=== PATIENT | female | born 1930 | race Caucasian/White ===

== ENCOUNTER 2018-06-21 10:23 | Emergency (ER) | payer OTHER, MEDICARE ==
--- OUTSIDE RECORDS SUMMARY | 2018-06-21 10:27 | XMS REPORT | Continuity of Care Document ---
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 [facility] RT KNEE OA Active [facility] HAMSTRING [place] PAIN IN RIGHT Active [facility] KNEE [place] NONTRAUMATIC Active [facility] SUBARACHNOID Medical HEMORRHAGE, [facility] Medications Medication Details Route Status Patient Ordering Order Source Instructions Provider Date Acetaminophen 650 mg=20.3 mL, Active 07/07[facility] PO, Q6H, PRN Pain 2017 Medical 1-3/Temp > 99.5 [place] F, 0 Refill(s) Sulfamethoxazole 1 tab, PO, Q12H, Active 07/07[facility] [place] 800 MG / Take 1 tab twice 2017 Medical Trimethoprim 160 a day, last dose Center MG Oral Tablet will be PM dose [Bactrim] on 07/13/16, this will complete a 7 day course., # 13 tab, 0 Refill(s) Levetiracetam 500 500 mg=1 tab, PO, Active 07/07[facility] [place] MG Oral Tablet Q12H, Take 1 tab 2017 Medical twice a day, last Center dose will be PM dose on 07/10/16, this will complete a 7 day course., # 7 tab, 0 Refill(s) docusate sodium 100 mg=10 mL, PO, Active 07/07[facility] [place] 150 mg/15 mL oral Q12H, 0 Refill(s) 2017 [facility] Sulfamethoxazole 1 tab, Route: PO, Inactive 07/07[facility] [place] 800 MG / Drug Form: TAB, 2017 Medical Trimethoprim 160 Dosing Weight Center MG Oral Tablet 84.8, kg, [Bactrim] [id number], NOW, Start date: 07/07/16 10:23:00 CDT, Duration: 14 doses or times, Stop date: 07/13/16 23:00:00 CDTNotes: One DS tablet=trimethopr im 160mg + sulfamethoxazole 800 mg Dose based on trimethoprim component On empty stomach with a glass of water. 1 hr before meals (Same As: Bactrim DS, Septra DS) ascorbic acid 1,000 mg, 2 tab, Inactive [facility] Route: PO, Drug 2016 Medical form: TAB, Daily, Center Dosing Weight 84.8, kg, Start date: 07/07/16 9:00:00 CDT, Duration: 30 day, Stop date: 08/05/16 9:00:00 CDTNotes: (Same as: Vitamin C) Solifenacin 5 mg, Route: PO, No Longer [facility] Drug form: TAB, Active 2017 Medical Daily, Dosing Center Weight 84.8, kg, Start date: 07/07/16 9:00:00 CDT, Duration: 30 day, Stop date: 08/05/16 9:00:00 CDT Magnesium Oxide 800 mg, 2 tab, Inactive [facility] Route: PO, Drug 2016 Medical form: TAB, TID, Center Dosing Weight 84.8, kg, Start date: 07/07/16 9:00:00 CDT, Duration: 2 doses or times, Stop date: 07/07/16 13:00:00 CDTNotes: (Same as: Mag-Ox 400) Magnesium oxide [id number] elemental magnesium Dose=____mg magnesium oxide (___mg elemental magnesium) Calcium Carbonate 500 mg, 1 tab, Inactive 07/07[facility] Route: PO, Drug 2016 Medical form: CHEWTAB, Center Daily, Dosing Weight 84.8, kg, Start date: 07/07/16 9:00:00 CDT, Duration: 30 day, Stop date: 08/05/16 9:00:00 CDTNotes: (Same As: Tums) Calcium Carbonate 500 zt=053 mg elemental calcium Dose= mg calcium carbonate ( mg elemental calcium) Ceftriaxone 1 gm, Route: Inactive [facility] IVPB, Drug form: 2017 Medical PDR/INJ, [id number], Center Dosing Weight 84.8, kg, Start date: 07/07/16 8:00:00 CDT, Duration: 5 doses or times, Stop date: 07/11/16 8:00:00 CDTNotes: (Same As: Rocephin). Use with 100 mL NS and infuse over 30 min MEDICATION WASTE Product Size: 1000 mg Product Wasted: ___ mg Simvastatin 40 mg, Route: PO, Inactive [facility] Drug form: TAB, 2017 Medical Bedtime, Dosing Center Weight 84.8, kg, Start date: 07/06/16 21:00:00 CDT, Duration: 30 day, Stop date: 08/04/16 21:00:00 CDT Aricept 10 mg, 2 tab, No Longer [facility] Route: PO, Drug Active 2016 Medical form: TAB, Center Bedtime, Dosing Weight 84.8, kg, Start date: 07/06/16 21:00:00 CDT, Duration: 30 day, Stop date: 08/04/16 21:00:00 CDTNotes: (Same as: Aricept) oxybutynin 2.5 mg, 0.5 tab, No Longer [facility] Route: PO, Drug Active 2016 Medical form: TAB, BID, Center Start date: 07/06/16 17:00:00 CDT, Duration: 30 day, Stop date: 08/05/16 9:00:00 CDTNotes: Same as: Ditropan) 2.5 mg=1/2 x 5 mg TAB Namenda 10 mg, 1 tab, No Longer [facility] Route: PO, Drug Active 2016 Medical form: TAB, Daily, Center Dosing Weight 84.8, kg, Start date: 07/06/16 15:00:00 CDT, Duration: 30 day, Stop date: 08/05/16 9:00:00 CDTNotes: (Same As: Namenda) multivitamin with 15 mL, Route: PO, No Longer [facility] minerals Drug Form: LIQ, Active 2017 Medical Dosing Weight Center 84.8, kg, Daily, Start date: 07/06/16 15:00:00 CDT, Duration: 30 day, Stop date: 08/05/16 9:00:00 CDTNotes: Adult dose=15ML Take with food. (Same As: Centrum, Certagen) WASTE: F/P - Black; E - Municipal Trash Bin Lexapro 10 mg, 1 tab, No Longer [place] Route: PO, Drug Active 2016 Medical form: TAB, Daily, Center Dosing Weight 84.8, kg, Start date: 07/06/16 13:23:00 CDT, Duration: 30 day, Stop date: 08/05/16 9:00:00 CDTNotes: (Same as: Lexapro) Acetaminophen 650 mg, 20.3 mL, No Longer [place] Route: PO, Drug Active 2016 Medical form: LIQ, Q6H, Center Dosing Weight 84.8, kg, PRN Pain 1-3/Temp > 99.5 F, Start date: 07/06/16 13:03:00 CDT, Duration: 30 day, Stop date: 08/05/16 13:02:00 CDTNotes: Max jkegckmsffose=342 0mg/day (4 gm/day). (Same as: Tylenol) Vitamin K1 10 mg, 10 mL, No Longer [place] Route: PO, Drug Active 2016 Medical form: SUSP, Center Daily, Dosing Weight 84.8, kg, Start date: 07/05/16 14:46:00 CDT, Duration: 2 day, Stop date: 07/07/16 9:00:00 CDT, Pediatric DosingNotes: Same as: Vitamin K, [place] Combine FILTERED phytonadione injection (total 50 mg/5 mL)with Simple Syrup (45mL) in brandin bottle. Shake well prior to dispensing. Expiration: 90 days at tem Vitamin K1 10 mg, 10 mL, Inactive [place] Route: PO, Drug 2016 Medical form: SUSP, Center Daily, Dosing Weight 84.8, kg, Start date: 07/05/16 9:00:00 CDT, Stop date: 07/06/16 9:00:00 CDT, Pediatric DosingNotes: Same as: Vitamin K, [place] Combine FILTERED phytonadione injection (total 50 mg/5 mL)with Simple Syrup (45mL) in brandin bottle. Shake well prior to dispensing. Expiration: 90 days at tem Miralax 17 gm, 1 pkt, Inactive [place] Route: PO, Drug 2016 Medical form: PWDR, ONCE, Center Dosing Weight 84.8, kg, Priority: NOW, Start date: 07/05/16 5:51:00 CDT, Stop date: 07/05/16 5:51:00 CDTNotes: Dissolve in 8 oz of water or juice. (Same as: Miralax) heparin sodium, 5,000 unit, 1 mL, No Longer [facility] porcine 2500 Route: SUB-Q, Active 2016 Medical UNT/ML Injectable Drug form: INJ, Center Solution Q8H, Dosing Weight 84.8, kg, Priority: Routine, Start date: 07/05/16 0:00:00 CDT, Duration: 30 day, Stop date: 08/03/16 16:00:00 CDTNotes: porcine heparin Warfarin 6.5 mg, PO, No Longer [facility] Daily, 0 Active 2016 Medical Refill(s) [place] vitamin E 400 400 IntlUnit=1 Active [facility] intl units oral cap, PO, Daily, # 2017 Medical capsule 30 cap, 0 Center Refill(s) Escitalopram 10 10 mg=1 tab, PO, Active [facility] MG Oral Tablet Daily, # 30 tab, 2017 Medical [Lexapro] 0 Refill(s) [place] Tylenol PO, 0 Refill(s) No Longer [facility] Active 2017 [facility] Center Foltx oral tablet 1 tab, PO, Daily, Active [facility] 0 Refill(s) 2017 [facility] Center Donepezil 10 mg=1 tab, PO, Active [facility] hydrochloride 10 BID, 0 Refill(s) 2017 Medical MG Oral Tablet Center [Aricept] simvastatin 40 mg 40 mg=1 tab, PO, Active [facility] oral tablet Bedtime, # 90 2017 Medical tab, 0 Refill(s) [place] celecoxib 100 MG 100 mg=1 cap, PO, Active [facility] Oral Capsule BID, # 60 cap, 0 2017 Medical [Celebrex] Refill(s) Center Vitamin C 1,000 mg, PO, Active [place] Daily, 0 2017 Medical Refill(s) Center Memantine 10 mg=1 tab, PO, Active [place] hydrochloride 10 BID, # 60 tab, 0 2017 Medical MG Oral Tablet Refill(s) [place] [Namenda] Calcium Carbonate 500 mg=1 tab, Active [facility] 1250 MG Chewable CHEW, Daily, 0 2016 Medical Tablet Refill(s) [place] [Calci-Chew] meloxicam 15 MG 15 mg=1 tab, PO, No Longer [place] Oral Tablet Daily, # 30 tab, Active 2017 Medical [Mobic] 0 Refill(s) Center solifenacin 5 mg=1 tab, PO, Active [facility] succinate 5 MG Daily, # 30 tab, 2017 Medical Oral Tablet 0 Refill(s) [place] [VESICARE] Levothyroxine 50 microgram=1 Active [facility] Sodium 0.05 MG tab, PO, Daily, # 2017 Medical Oral Tablet 30 tab, 0 Center [Synthroid] Refill(s) Simvastatin 40 mg, 1 tab, No Longer [place] Route: PO, Drug Active 2016 Medical form: TAB, Center Bedtime, Dosing Weight 77.273, kg, Start date: 07/03/16 21:00:00 CDT, Duration: 30 day, Stop date: 08/01/16 21:00:00 CDTNotes: (Same as: Zocor) Streptococcus 0.5 mL, Route: Inactive [place] pneumoniae IM, Drug Form: 2017 Medical serotype 1 INJ, Daily, Start Center capsular antigen date: 07/03/16 diphtheria [id number] 9:00:00 CDT, protein conjugate Duration: 1 doses vaccine / or times, Stop Streptococcus date: 07/03/16 pneumoniae 9:00:00 CDTNotes: serotype 14 Lightly roll vial capsular antigen (DO NOT SHAKE) diphtheria [id number] before protein conjugate administration. vaccine / (Same as: Prevnar Streptococcus 13) pneumoniae serotype 18C capsular antigen d Saline Flush 0.9% 10 ml, Route: No Longer [place] IVP, Drug Form: Active 2016 Medical INJ, Dosing Center Weight 77.273, kg, Q12H, Start date: 07/03/16 9:00:00 CDT, Duration: 30 day, Stop date: 08/01/16 21:00:00 CDTNotes: Same as: BD Posiflush Sterile sennosides, SHELTER 8.6 mg, 1 tab, No Longer [place] Route: PO, Drug Active 2016 Medical Form: TAB, Dosing Center Weight 77.273, kg, Q12H, Start date: 07/03/16 9:00:00 CDT, Duration: 30 day, Stop date: 08/01/16 21:00:00 CDTNotes: (Same as: Senokot) Docusate 100 mg, 10 mL, No Longer [place] Route: PO, Drug Active 2016 Medical form: LIQ, Q12H, Center Dosing Weight 77.273, kg, Start date: 07/03/16 9:00:00 CDT, Stop date: 08/01/16 21:00:00 CDTNotes: (Same as: Colace) Levetiracetam 500 mg, 1 tab, No Longer [place] Route: PO, Drug Active 2016 Medical form: TAB, Q12H, Center Dosing Weight 77.273, kg, Start date: 07/03/16 9:00:00 CDT, Stop date: 07/10/16 9:00:00 CDTNotes: (Same as:Kemaya) phytonadione + 10 mg, 1 mL, No Longer [place] sodium chloride Route: IVPB, Active 2016 Medical 0.9% INJ 50 mL Daily, Dosing Center Weight 84.8, kg, Start date: 07/03/16 9:00:00 CDT, Duration: 3 doses or times, Stop date: 07/05/16 9:00:00 CDTNotes: (Same as: Aqua-Mephyton, Vitamin K) MEDICATION WASTE Product Size: 10 mg Product Wasted: ___ mg Thyroxine 50 microgram, 1 No Longer [place] tab, Route: PO, Active 2016 Medical Drug form: TAB, Center [id number], Dosing Weight 77.273, kg, Start date: 07/03/16 6:30:00 CDT, Duration: 30 day, Stop date: 08/01/16 6:30:00 CDTNotes: Take 1 hour before or 2 hours after meal; Enteral feeds may interefere with the absorption of this medication.(Same as:Levothroid, Synthroid) Calcium Carbonate 500 mg, 1 tab, Inactive [place] 500 MG Chewable Route: PO, Drug 2016 Medical Tablet form: CHEWTAB, Center PRN, Dosing Weight 77.273, kg, PRN Abnormal Lab Result, FOR ICU USE ONLY, Start date: 07/03/16 0:47:00 CDT, Duration: 30 day, Stop date: 08/02/16 0:46:00 CDTNotes: (Same As: Tums) Calcium Carbonate 500 wa=364 mg elemental calcium Dose= mg calcium carbonate ( mg elemental calcium) Calcium Gluconate 1 gm, 10 mL, Inactive [place] Route: IVPB, PRN, 2016 Medical Dosing Weight Center 77.273, kg, PRN Abnormal Lab Result, Start date: 07/03/16 0:47:00 CDT, Duration: 30 day, Stop date: 08/02/16 0:46:00 CDT, FOR ICU USE ONLYNotes: WASTE: F/P - Sink; E - Municipal Trash Bin Magnesium Sulfate 2 gm, 50 mL, Inactive [place] Route: IVPB, Drug 2016 Medical form: INJ, PRN, Center Dosing Weight 77.273, kg, PRN Abnormal Lab Result, Start date: 07/03/16 0:47:00 CDT, Duration: 30 day, Stop date: 08/02/16 0:46:00 CDT, FOR ICU USE ONLYNotes: WASTE: F/P - Sink; E - Municipal Trash Bin Magnesium Oxide 800 mg, 2 tab, Inactive [place] Route: PO, Drug 2016 Medical form: TAB, PRN, Center Dosing Weight 77.273, kg, PRN Abnormal Lab Result, FOR ICU USE ONLY, Start date: 07/03/16 0:47:00 CDT, Duration: 30 day, Stop date: 08/02/16 0:46:00 CDTNotes: (Same as: Mag-Ox 400) Magnesium oxide [id number] elemental magnesium Dose=____mg magnesium oxide (___mg elemental magnesium) potassium 2 pkt, Route: PO, Inactive [place] phosphate-sodium Drug Form: 2017 Medical phosphate 250 PDR/REC, Dosing Center mg-280 mg-160 mg Weight 77.273, oral powder for kg, PRN, PRN reconstitution Abnormal Lab Result, FOR ICU USE ONLY, Start date: 07/03/16 0:47:00 CDT, Duration: 30 day, Stop date: 08/02/16 0:46:00 CDTNotes: (Same as: Phos-NaK) Each 1.5 gm pkt has 250mg phosphorous. Mix w/2.5oz water and stir. potassium 20 mEq, 1 tab, Inactive [place] chloride Route: PO, Drug 2016 Medical form: ERTAB, PRN, Center Dosing Weight 77.273, kg, PRN Abnormal Lab Result, Start date: 07/03/16 0:47:00 CDT, Duration: 30 day, Stop date: 08/02/16 0:46:00 CDT, FOR ICU USE ONLYNotes: (Same as: K-Dur 20) "Do Not Crush" With food and full glass of water potassium 30 mmol, 10 mL, Inactive [place] phosphate + Route: IVPB, PRN, 2016 Medical sodium chloride Dosing Weight Center 0.9% INJ 250 mL 77.273, kg, PRN Abnormal Lab Result, Start date: 07/03/16 0:47:00 CDT, Duration: 30 day, Stop date: 08/02/16 0:46:00 CDT, FOR ICU USE ONLYNotes: (Same as: K Phosphate.) 1 mMol phoshate has 1.47 mEq potassium Infuse over 4 hours sodium phosphate 15 mmol, 5 mL, Inactive [facility] + sodium chloride Route: IVPB, PRN, 2016 Medical 0.9% INJ 250 mL Dosing Weight Center 77.273, kg, PRN Abnormal Lab Result, Start date: 07/03/16 0:47:00 CDT, Duration: 30 day, Stop date: 08/02/16 0:46:00 CDT, FOR ICU USE ONLY Saline Flush 0.9% 10 ml, Route: No Longer [place] IVP, Drug Form: Active 2017 Medical INJ, Dosing Center Weight 77.273, kg, PRN, PRN Line Flush, Start date: 07/02/16 23:14:00 CDT, Duration: 30 day, Stop date: 08/01/16 23:13:00 CDTNotes: Same as: BD Posiflush Sterile Ondansetron 4 mg, 2 mL, No Longer [facility] Route: IVP, Drug Active 2016 Medical form: INJ, Q8H, Center Dosing Weight 77.273, kg, PRN Nausea & Vomiting, Start date: 07/02/16 23:14:00 CDT, Duration: 30 day, Stop date: 08/01/16 23:13:00 CDTNotes: (Same as: Fabian) MEDICATION WASTE Product Size: 4 mg Product Wasted: ___ mg Levetiracetam 1,000 mg, Route: No Longer [facility] IVPB, ONCE, Active 2016 Medical Dosing Weight Center 77.273, kg, Start date: 07/02/16 23:14:00 CDT, Stop date: 07/02/16 23:14:00 CDTNotes: Same as Keppra Mix with 100 mL NS, LR or D5W MEDICATION WASTE Product Size: 500 mg Product Wasted: ___ mg Sodium Chloride 1,000 mL, Rate: No Longer [facility] 0.154 MEQ/ML 75 ml/hr, Infuse Active 2016 Medical Injectable over: 13.3 hr, Center Solution Route: IV, Dosing Weight 77.273 kg, Total Volume: 1,000, Start date: 07/02/16 23:14:00 CDT, Duration: 30 day, Stop date: 08/01/16 23:13:00 CDT Allergies, Adverse Reactions, Alerts Substance Category Reaction Severity Reaction Status Date Comments Source type Reported Immunizations Immunization Date Given Site Status Last Comments Source Updated pneumococcal 07/03/2016 Left completed Delfino [facility] 13-valent vaccine deltoid [facility] Results Order Name Results Value Reference Date Interpretation Comments Source Range CHEM PANEL Phosphorus 3.5 mg/dL 2.5 - 4.5 07/[address] CHEM PANEL Magnesium 1.9 mg/dL 1.8 - 2.4 07/[address] ELECTROLYTE AGAP 11.4 meq/L 10.0 - 07/07 [facility] S 20.0 [facility] ELECTROLYTE CO2 31 meq/L 24 - 32 07/07 [facility] ELECTROLYTE Calcium Lvl 9.4 mg/dL 8.5 - 10.5 07/07 [facility] ELECTROLYTE Chloride Lvl 105 meq/L 95 - 109 07/07 [facility] ELECTROLYTE eGFR 52 07/07 Result Comment: The eGFR is calculated using the CKD-EPI formula. In most young, healthy individuals the eGFR will be >90 mL/ min/1.73m2. The eGFR declines with age. An eGFR of 60-89 may be normal in [facility] mL/min/1.7 some populations, particularly the elderly, for whom the CKD-EPI formula has not been extensively validated. Use of the eGFR is not recommended in the following populations: [address] Individuals with unstable creatinine concentrations, including patients and those with serious co-morbid conditions. Patients with extremes in muscle mass or diet. The data above are obtained from the National Kidney Disease Education Program (NKDEP) which additionally recommends that when the eGFR is used in patients with extremes of body mass index for purposes of drug dosing, the eGFR should be multiplied by the estimated BMI. ELECTROLYTE BUN 18 mg/dL 7 - 22 07/07 [facility] ELECTROLYTE Potassium 4.4 meq/L 3.5 - 5.1 07/07 [facility] ELECTROLYTE Creatinine 1.00 mg/dL 0.50 - 07/07 [facility] Lvl 1.40 [facility] ELECTROLYTE Glucose Lvl 97 mg/dL 70 - 99 07/07 [facility] ELECTROLYTE Sodium Lvl 143 meq/L 135 - 145 07/07 [facility] HEMATOLOGY PT 14.6 s 12.0 - 07/07 [place] 14.7 [facility] HEMATOLOGY PTT 33.0 s 22.9 - 07/07 [place] 35.8 [facility] HEMATOLOGY INR 1.12 0.85 - 07/07 [facility] 1.17 [facility] HEMATOLOGY RDW 14.9 % 11.5 - 07/07 [facility] 14.5 [facility] HEMATOLOGY MCV 93.6 fL 80.0 - 07/07 [place] 98.0 [facility] HEMATOLOGY Hct 34.3 % 36.0 - 07/07 48.0 [facility] HEMATOLOGY MCHC 32.9 g/dL 32.0 - 07/07 36.0 [facility] HEMATOLOGY MCH 30.8 pg 27.0 - 07/07 [facility] 31.0 [facility] HEMATOLOGY MPV 9.3 fL 7.4 - 10.4 07/07 2016 [facility] HEMATOLOGY Platelet 162 K/CMM 133 - 450 07/07 [facility] HEMATOLOGY Hgb 11.3 g/dL 12.0 - 07/07 [facility] 16.0 [facility] HEMATOLOGY WBC 6.8 K/CMM 3.7 - 10.4 07/07 [facility] HEMATOLOGY RBC 3.67 M/CMM 4.20 - 07/07 [facility] 5.40 [facility] HEMATOLOGY Monocytes # 0.9 K/CMM 0.0 - 0.8 07/[address] [place] [address] HEMATOLOGY Eosinophils 0.1 K/CMM 0.0 - 0.5 07/07 [facility] HEMATOLOGY Lymphocytes 2.0 K/CMM 1.0 - 5.5 07/07 [facility] HEMATOLOGY Basophils 0.7 % 0.0 - 1.0 07/07 [facility] HEMATOLOGY Lymphocytes 29.5 % 20.0 - 07/07 40.0 [facility] HEMATOLOGY Segs 54.3 % 45.0 - 07/07 75.0 [facility] HEMATOLOGY Segs-Bands # 3.7 K/CMM 1.5 - 8.1 07/07 [facility] HEMATOLOGY Eosinophils 1.6 % 0.0 - 4.0 07/07 [facility] HEMATOLOGY Monocytes 13.9 % 2.0 - 12.0 07/[address] [place] [address] PARATHYROID Ca Ion WB 1.25 1. - 07/07 [facility] PROFILE mMol/L . [facility] PARATHYROID Ca Norm WB 1.24 1. - 07/07 [facility] PROFILE mMol/L . [facility] URINE AND UA RBC 1 /HPF 0 - 2 07/07 [facility] STOOL [facility] URINE AND UA WBC 98 /HPF 0 - 5 07/07 [facility] URINE AND UA <=1.0 0.1 - 1.0 07/07 [facility] Urobilinogen mg/dL [facility] URINE AND UA Mucus Few /LPF None Seen 07/07 [facility] /LPF [facility] URINE AND UA Sq Epi None Seen 07/07 [facility] URINE AND UA Leuk Est Large Negative 07/07 [facility] *ABN* [place] (07/06/16 10:18 PM) URINE AND UA Bacteria Moderate None Seen 07/07 [facility] /HPF /HPF [facility] URINE AND UA Glucose Negative Negative 07/07 [facility] mg/dL mg/dL [facility] URINE AND UA Protein 20 mg/dL Negative 07/07 [facility] mg/dL [facility] URINE AND UA Ketones Negative Negative 07/07 [facility] mg/dL mg/dL [facility] URINE AND UA Bili Negative Negative 07/07 [facility] *NA* Center (07/06/16 10:18 PM) URINE AND UA Color Yellow Yellow 07/07 [facility] *NA* [place] (07/06/16 10:18 PM) URINE AND UA pH 6.0 5.0 - 8.0 07/07 [facility] URINE AND UA Spec Grav 1.018 <=1.030 07/07 [facility] URINE AND UA Turbidity Slight Clear 07/07 [facility] *ABN* [place] (07/06/16 10:18 PM) URINE AND UA Blood Trace Negative 07/07 [facility] *[facility]* [place] (07/06/16 10:18 PM) URINE AND UA Nitrite Positive Negative 07/07 [facility] *[facility]* [place] (07/06/16 10:18 PM) Femur Femur series EXAM: XR LEFT FEMUR 2 VIEWS 07/06 - [facility] series DX DX - [facility] DATE: 07/06/2016 1:17 PM CDT Read by: Wilbert Beavers MD Dictated Date/time: 07/06/16 16:23 Electronically Signed by: Wilbert Beavers MD 07/06/16 16:23 FINAL REPORT INDICATION: Pain from a fall COMPARISON: None TECHNIQUE: AP and lateral radiographs of the femur FINDINGS: No acute fracture or malalignment is identified. No soft tissue abnormality is identified. IMPRESSION: No acute abnormality. HEMATOLOGY PTT 29.0 s 22.9 - 07/04 [facility] 35.8 [facility] HEMATOLOGY PT 15.4 s 12.0 - 07/04 [facility] 14.7 [facility] HEMATOLOGY INR 1.19 0.85 - 07/04 [facility] 1.17 [facility] CHEM PANEL Phosphorus 3.1 mg/dL 2.5 - 4.5 07/04 [facility] CHEM PANEL Magnesium 1.9 mg/dL 1.8 - 2.4 07/04 [facility] ELECTROLYTE CO2 29 meq/L 24 - 32 07/[address] ELECTROLYTE Calcium Lvl 9.5 mg/dL 8.5 - 10.5 07/[address] ELECTROLYTE Glucose Lvl 86 mg/dL 70 - 99 07/[address] ELECTROLYTE BUN 9 mg/dL 7 - 22 07/04 [address] [address] ELECTROLYTE Sodium Lvl 143 meq/L 135 - 145 07/[address] ELECTROLYTE Creatinine 0.84 mg/dL 0.50 - 07/04 [facility] Lvl 1.40 [facility] ELECTROLYTE Chloride Lvl 106 meq/L 95 - 109 07/[address] ELECTROLYTE Potassium 4.1 meq/L 3.5 - 5.1 07/04 [facility] [address] [place] [address] ELECTROLYTE eGFR 64 07/04 Result Comment: The eGFR is calculated using the CKD-EPI formula. In most young, healthy individuals the eGFR will be >90 mL/ min/1.73m2. The eGFR declines with age. An eGFR of 60-89 may be normal in [facility] mL/min/1. some populations, particularly the elderly, for whom the CKD-EPI formula has not been extensively validated. Use of the eGFR is not recommended in the following populations: [address] Individuals with unstable creatinine concentrations, including patients and those with serious co-morbid conditions. Patients with extremes in muscle mass or diet. The data above are obtained from the National Kidney Disease Education Program (NKDEP) which additionally recommends that when the eGFR is used in patients with extremes of body mass index for purposes of drug dosing, the eGFR should be multiplied by the estimated BMI. ELECTROLYTE AGAP 12.1 meq/L 10.0 - 07/04 [facility] S 20.0 [facility] HEMATOLOGY MPV 8.6 fL 7.4 - 10.4 07/04 [facility] HEMATOLOGY Platelet 148 K/CMM 133 - 450 07/04 [facility] HEMATOLOGY MCHC 33.3 g/dL 32.0 - 07/04 36.0 [facility] HEMATOLOGY RDW 14.7 % 11.5 - 07/04 14.5 [facility] HEMATOLOGY MCH 31.0 pg 27.0 - 07/04 31.0 [facility] HEMATOLOGY Hct 34.8 % 36.0 - 07/04 48.0 [facility] HEMATOLOGY MCV 93.1 fL 80.0 - 07/04 98.0 [facility] HEMATOLOGY RBC 3.74 M/CMM 4.20 - 07/04 [facility] 5.40 /2016 [facility] HEMATOLOGY Hgb 11.6 g/dL 12.0 - 07/04 16.0 [facility] HEMATOLOGY WBC 5.8 K/CMM 3.7 - 10.4 07/04 [facility] HEMATOLOGY Segs-Bands # 3.6 K/CMM 1.5 - 8.1 07/04 [facility] HEMATOLOGY Basophils 0.7 % 0.0 - 1.0 07/04 [facility] HEMATOLOGY Lymphocytes 1.4 K/CMM 1.0 - 5.5 07/04 [facility] HEMATOLOGY Monocytes # 0.7 K/CMM 0.0 - 0.8 07/04 [facility] HEMATOLOGY Eosinophils 0.1 K/CMM 0.0 - 0.5 07/04 [facility] HEMATOLOGY Segs 61.8 % 45.0 - 07/04 [place] 75.0 [facility] HEMATOLOGY Eosinophils 1.2 % 0.0 - 4.0 07/04 [facility] HEMATOLOGY Monocytes 11.5 % 2.0 - 12.0 07/04 [facility] HEMATOLOGY Lymphocytes 24.8 % 20.0 - 07/04 [place] 40.0 [facility] PARATHYROID Ca Norm WB 1.14 1.05 - 07/04 [facility] PROFILE mMol/L 1. [facility] PARATHYROID Ca Ion WB 1.14 1.05 - 07/04 [place] PROFILE mMol/L 1. [facility] HEMATOLOGY PT 19.8 s 12.0 - 07/03 [place] 14.7 /2016 [facility] HEMATOLOGY INR 1.65 0.85 - 07/03 [place] 1. [facility] HEMATOLOGY PTT 32.3 s 22.9 - 07/03 [place] 35.8 /2016 [facility] PARATHYROID Ca Norm WB 1.09 1.05 - 07/03 [place] PROFILE mMol/L 1. [facility] PARATHYROID Ca Ion WB 1.11 1.05 - 07/03 [place] PROFILE mMol/L 1. [facility] Brain wo Brain wo EXAM: CT BRAIN WITHOUT CONTRAST 07/03 [facility] contrast CT contrast CT /2016 [facility] DATE: 07/03/2016 4:19 AM Read by: Guille Barajas MD Dictated Date/time: 07/03/16 06:27 Electronically Signed by: Guille Barajas MD 07/03/16 06:32 FINAL REPORT INDICATION: Bleeding COMPARISON: CT brain 07/02/2016 11:30 PM TECHNIQUE: Noncontrast axial imaging of the brain was acquired from the vertex to the skull base. Coronal and sagittal reformatted images were generated. DLP: 1135mGy-cm FINDINGS: Subdural hematoma along the left cerebral convexity which is not significantly changed in size. No new hemorrhage. No midline shift or herniation. Unchanged appearance of the brain parenchyma and stable ventricular size. Trace residual subarachnoid hemorrhage. Remainder of the exam is unchanged. IMPRESSION: Stable size of the left convexity subdural hematoma. Trace residual subarachnoid hemorrhage. BLOOD BANK Antibody Negative 07/03 [facility] RESULTS Scrn [facility] (07/02/16 11:01 PM) [place] BLOOD BANK ABO/Rh A POS 07/03 [place] RESULTS /2016 [facility] BLOOD BANK FFP product Product available 07/03 [place] RESULTS [facility] (07/02/16 10:35 PM) [place] CARDIAC Troponin-I null 0.00 - 07/03 [facility] ENZYMES 0.40 [facility] CHEM PANEL AST 33 unit/L 0 - 37 07/03 /2016 [facility] CHEM PANEL Alk Phos 78 unit/L 39 - 136 07/03 [facility] CHEM PANEL ALT 24 unit/L 0 - 65 07/03 [facility] CHEM PANEL Total 7.3 g/dL 6.4 - 8.4 07/03 [facility] Protein [facility] CHEM PANEL Albumin Lvl 3.8 g/dL 3.5 - 5.0 07/03 [facility]2016 [facility] CHEM PANEL Bili Total 0.4 mg/dL 0.2 - 1.3 07/[address] CHEM PANEL Bili Direct 0.1 mg/dL 0.0 - 0.3 07/03 [facility]2016 [facility] CHEM PANEL Bili 0.3 mg/dL 0.0 - 1.0 07/03 [facility] Indirect [facility] CHEM PANEL A/G Ratio 1.1 0.7 - 1.6 07/[address] CHEM PANEL Globulin 3.5 g/dL 2.7 - 4.2 07/[address] CHEM PANEL Lactic Acid 1.2 mMol/L 0.5 - 2.2 07/03 [facility] ELECTROLYTE AGAP 11.2 meq/L 10.0 - 07/03 [facility] S 20. [facility] ELECTROLYTE eGFR 50 07/03 Result Comment: The eGFR is calculated using the CKD-EPI formula. In most young, healthy individuals the eGFR will be >90 mL/ min/1.73m2. The eGFR declines with age. An eGFR of 60-89 may be normal in [facility] mL/min/1. some populations, particularly the elderly, for whom the CKD-EPI formula has not been extensively validated. Use of the eGFR is not recommended in the following populations: [address] Individuals with unstable creatinine concentrations, including patients and those with serious co-morbid conditions. Patients with extremes in muscle mass or diet. The data above are obtained from the National Kidney Disease Education Program (NKDEP) which additionally recommends that when the eGFR is used in patients with extremes of body mass index for purposes of drug dosing, the eGFR should be multiplied by the estimated BMI. ELECTROLYTE Chloride Lvl 106 meq/L 95 - 109 07/03 [facility] ELECTROLYTE Calcium Lvl 9.3 mg/dL 8.5 - 10.5 07/03 [facility]2016 [facility] ELECTROLYTE CO2 28 meq/L 24 - 32 07/03 [facility]2016 [facility] ELECTROLYTE Glucose Lvl 107 mg/dL 70 - 99 07/03 [facility] ELECTROLYTE Sodium Lvl 141 meq/L 135 - 145 07/03 [facility] ELECTROLYTE BUN 18 mg/dL 7 - 22 07/03 [facility] ELECTROLYTE Creatinine 1.03 mg/dL 0.50 - 07/03 [facility] Lvl 1.40 [facility] ELECTROLYTE Potassium 4.2 meq/L 3.5 - 5.1 07/03 [facility] HEMATOLOGY Eosinophils 0.5 % 0.0 - 4.0 07/03 [facility] HEMATOLOGY Monocytes 7.7 % 2.0 - 12.0 07/03 [facility] HEMATOLOGY Lymphocytes 14.8 % 20.0 - 07/03 [facility] 40.0 [facility] HEMATOLOGY Segs 76.6 % 45.0 - 07/03 [facility] 75.0 [facility] HEMATOLOGY Monocytes # 0.6 K/CMM 0.0 - 0.8 07/03 [facility] HEMATOLOGY Basophils 0.4 % 0.0 - 1.0 07/03 [facility] HEMATOLOGY Lymphocytes 1.1 K/CMM 1.0 - 5.5 07/03 [facility] HEMATOLOGY Segs-Bands # 5.7 K/CMM 1.5 - 8.1 07/03 [facility] HEMATOLOGY Estimated % 0.4 % 0.0 - 7.5 07/03 [facility] Lysis [facility] HEMATOLOGY Max 66 mm 52 - 71 07/03 [facility] HEMATOLOGY G-value 9.6 K d/sc 5.0 - 11.6 07/03 [facility] HEMATOLOGY K-time Rapid 1.1 min 0.6 - 2.3 07/03 [facility] HEMATOLOGY Angle Rapid 76 degrees 64 - 80 07/03 [facility] HEMATOLOGY [place] 0.5 min 07/03 [facility] HEMATOLOGY R-time Rapid 0.8 min 0.4 - 0.7 07/03 [facility]2016 [facility] HEMATOLOGY ACT (TEG) 121 s 86 - 118 07/03 [facility] 2016 [facility] HEMATOLOGY RBC 3.92 M/CMM 4.20 - 07/03 [facility] 5. [facility] HEMATOLOGY WBC 7.5 K/CMM 3.7 - 10.4 07/03 [facility] HEMATOLOGY Hct 36.3 % 36.0 - 07/03 [facility] 48.0 [facility] HEMATOLOGY Hgb 12.3 g/dL 12.0 - 07/03 [facility] 16.0 [facility] HEMATOLOGY MPV 8.6 fL 7.4 - 10.4 07/03 [facility] HEMATOLOGY MCHC 33.9 g/dL 32.0 - 07/03 [facility] 36.0 [facility] HEMATOLOGY Platelet 143 K/CMM 133 - 450 07/03 [facility] HEMATOLOGY RDW 15.1 % 11.5 - 07/03 [facility] 14.5 [facility] HEMATOLOGY MCH 31.4 pg 27.0 - 07/03 [facility] 31.0 [facility] HEMATOLOGY MCV 92.5 fL 80.0 - 07/03 [facility] 98.0 [facility] Brain wo Brain wo EXAM: CT HEAD WITHOUT CONTRAST 07/02 - [facility] contrast CT contrast CT /2016 [facility] DATE: 07/02/2016 1131 PM CDT Read by: Cuba Forte MD Dictated Date/time: 07/03/16 00:11 Electronically Signed by: Cuba Forte MD 07/03/16 00:16 FINAL REPORT INDICATION: 86 years old Female patient with history of Pain Post Trauma. TECHNIQUE: Multiple axial images were obtained through the head from vertex to the skull base. Axial bone algorithm reconstruction images are provided. COMPARISON: Prior outside hospital CT Scan of the head dated 07/02/2016 at 10:18 PM DISCUSSION: Since prior study, there has been interval increase in left cerebral convexity subdural hematoma with maximum thickness measures up to 11.5 mm compared to previously measured 7 mm with mild mass effect over the underlying cerebral hemisphere without significant midline shift. Near-complete interval resolution of previously identified trace amount of subarachnoid hemorrhage along the left frontal and r ight parietal convexity. A remaining findings are not significantly progressed from prior study. Overall ventricles are stable in size and configuration. Basal cisterns are grossly preserved. There is no evidence of downward herniation. No interval significant adverse changes in visualized paranasal sinuses, orbits, mastoid cavities and calvarium. IMPRESSION: 1. Interval increased left cerebral convexity subdural hematoma with maximum thickness measures up to 11.5 mm as compared to previously measured 7 mm. No significant midline shift. 2. Near complete evolution of previously identified trace amount of subarachnoid hemorrhage along the left frontal and right parietal convexity. These findings are in agreement with preliminary report made by provider relations consultant vice president of business development: Creator: Johnna Mix Date: Jul 02, 2016 23:47:41 Subject: Left subdural hemorrhage is enlarging, now measuring up to 11 mm in thickness. No midline shift. Finding given to Dr. Powers at 23:47 hours on 07/02/16. Brain-Outsi Brain-Outsid EXAM: CT FACIAL BONES WITHOUT CONTRAST 07/02 - [facility] de Consult e Consult CT /2016 - Medical CT This report was dictated by a Rewrite Editor/Fellow. I have personally reviewed the images as Center well as the Resident's interpretation and agree with the findings. DATE: 07/02/2016 10:03 PM CDT Read by: Johnna Mix MD Resident: Johnna Mix MD Dictated Date/time: 07/03/16 05:13 Electronically Signed by: Qasim Angelo 07/03/16 06:59 FINAL REPORT INDICATION: 2nd opinion interpretation. COMPARISON: None TECHNIQUE: Outside noncontrast CT images of the face obtained at [facility] on 07/02/2016 at 1717 hours were uploaded for a 2nd opinion interpretation. Axial, sagittal and coronal reformats are included. FINDINGS: Bones: The images are partially obscured by motion artifact.. Also, assessment of the maxillary and mandibular alveolus is limited by streak artifact from dental hardware. There is a comminuted fracture of the left maxillary sinus, with mild depression of the fracture fragments. The fracture extends superiorly to the anterior orbital floor and also through the posterior w all of the sinus. There is a mildly displaced fracture of the left lateral orbital wall. A segmental fracture of the left zygomatic arch is present. There is fluid layering within the left maxillary sinus. Soft tissues: There is a laceration with surrounding soft tissue swelling lateral to the left orbit. Subcutaneous emphysema seen in the left face and the left retromaxillary fat. Globes are symmetric in CT appearance. There is no intraconal hematoma. IMPRESSION: 1. Comminuted and depressed left zygomaxillary complex fracture as discussed above. 2. Overall, the study is limited by motion and streak artifact. 3. Soft tissue laceration and swelling in the left anterior temporal region. Brain-Outsi Brain-Outsid EXAM: CT HEAD WITHOUT CONTRAST 07/02 - [facility] Consult e Consult CT - [facility] CT [place] DATE: Study was performed at outside hospital on 07/02/2016 at 5:26 PM and submitted for 2nd interpretation on 07/02/2016 10:02 PM CDT Read by: Cuba Forte MD Dictated Date/time: 07/02/16 22:30 Electronically Signed by: Cuba Forte MD 07/02/16 22:36 FINAL REPORT INDICATION: 86 years old Female patient with provided history of trauma. TECHNIQUE: Outside hospital noncontrast CT Scan of the head was submitted for 2nd opinion/interpretation. Multiple axial images were obtained through the head from vertex to the skull base. Axial bone a lgorithm reconstruction images were provided. COMPARISON: None. FINDINGS: Note is made of subdural hematoma along the left frontal convexity with maximum thickness measures up to 7 mm without significant mass effect over the underlying cerebral hemisphere. Trace amount of sub arachnoid hemorrhage is identified along the left frontal and right parietal convexity. Small extra-axial/subdural isodense fluid collection of the left paramedian frontal convexity with associated calcification along the dura. There is diffuse moderate cerebral volume loss causing moderate ex- vacuo enlargement of the ventricular system and extra-axial fluid spaces. No evidence of obstructive hydrocephalus or pathological extra-axial fluid collection is seen. Multiple scattered as well as confluent hypodense areas within periventricular, deep white matter bilaterally, likely related to chronic microvascular ischemic changes. No definite evidence of acute cerebral edema, mass effect, midline shift is seen. Basal cisterns are well preserved. There is no evidence of downward herniation at the level of foramen magnum. Calvarium is intact. Both mastoid cavities are clear. Please refer to detailed report of the CT scan of the face performed at same time for findings of left orbital, left maxillary, left zygomatic arch fractures. Calcified atherosclerotic plaques are noted within the bilateral carotid siphons and intracranial vertebral arteries. IMPRESSION: 1. 7 mm thickness left cerebral convexity acute subdural hematoma without significant mass effect. 2. Trace amount of subarachnoid hemorrhage along the left frontal and right parietal convexity. 3. Diffuse moderate cerebral volume loss. Sequela of moderate chronic microvascular ischemic changes. 4. Please refer to detailed report of the CT scan of the face performed at same time for findings of left orbital, left maxillary, left zygomatic arch fractures. Outside hospital report is available. Findings are in agreement with outside hospital report. Spine-Outsi Spine-Outsid EXAM: CT CERVICAL SPINE WITHOUT CONTRAST 07/02 - [facility] de Consult e Consult CT - Medical CT This report was dictated by a Rewrite Editor/Fellow. I have personally reviewed the images as Center well as the Resident's interpretation and agree with the findings. DATE: 07/02/2016 10:03 PM CDT Read by: Johnna Mix MD Resident: Johnna Mix MD Dictated Date/time: 07/03/16 05:05 Electronically Signed by: Qasim Angelo 07/03/16 05:43 FINAL REPORT INDICATION: 2nd opinion interpretation COMPARISON: None TECHNIQUE: Noncontrast CT images of the cervical spine obtained at [facility] on 07/02/2016 at 1717 hours were uploaded for a 2nd opinion interpretation. Axial, sagittal and coronal images are included. FINDINGS: The spine is imaged from the skull base to the level of T1. No acute fracture or malalignment is identified. There are mild multilevel degenerative disc changes most evident at C4-C5 with small osteophytes. There is multilevel facet arthropathy. Median atlantoax ial degenerative changes are also seen. No prevertebral soft tissue hematoma. Partially visualized left maxillary sinus opacification. There is biapical subsegmental atelectasis. Right thyroid nodule measuring about 2.5 x 2.5 x 3.5 cm is seen with mild inferior extension into the thoracic inlet causing mild leftward buckling of the trachea. IMPRESSION: 1. No acute fracture or malalignment of the cervical spine. 2. Multilevel cervical spondylosis. 3. Incidentally noted right thyroid nodule, measuring 2.5 x 2.5 x 3.5 cm, with mild inferior extension into the thoracic inlet. Nonemergent ultrasound follow-up is recommended. Chest 1view Chest 1view EXAM: XR CHEST 1 VIEW 07/02 - [place] DX DX /2016 [facility] DATE: 07/02/2016 8:43 PM CDT Read by: Sean Rosas MD Dictated Date/time: 07/02/16 22:36 Electronically Signed by: Sean Rosas MD 07/02/16 22:36 FINAL REPORT INDICATION: Pain Post Trauma - syncope on coumadin COMPARISON: Same-day chest radiograph TECHNIQUE: AP chest FINDINGS: There is stable cardiomegaly. Low lung volumes with vascular crowding and scattered atelectasis. No focal consolidation. No pleural effusions or pneumothorax. No acute osseous abnormality. Note made of multiple left axillary surgical clips. IMPRESSION: Stable cardiomegaly Bone Bone Density 09/28 - [facility] Density DXA DXA Dual /2014 - [place] [employer] [place] REASON FOR EXAM: Osteopenia. [place] Read by: Nikolai Martinez MD Dictated Date/time: 09/28/14 12:16 COMPARISON: 09/19/2012. Electronically Signed by: Nikolai Martinez MD 09/28/14 12:18 FINAL REPORT TECHNIQUE: The bone mineral density determination of the lumbar spine and left hip were performed using a [employer] [id number] scanner. FINDINGS: The composite T-score of the L1 through L4 vertebral bodies is - 0.7 and the Z-score is 2.1. The bone mineral density of the lumbar spine is within normal limits. The fracture risk is not incre ased. The percent change from the comparison exam is -1.4%. The total BMD of the lumbar spine is 0.972 g/sq cm. The composite T-score of the left hip is -0.5 and the Z-score is 1.7. The composite bone mineral density of the left hip is within normal limits. The percent change from the comparison exam is +5.6%. Ho wever, the T-score of the femoral neck is -1.2 indicating osteopenia with a medium fracture risk. The total BMD of the left hip is 0.887 g/sq cm. The femoral neck BMD is 0.721 g/sq cm. IMPRESSION: 1. Normal bone mineral density of the lumbar spine. 2. Osteopenia of the left femoral neck. The World Health Organization has established that the T-score for normal bone mineral density is greater than or equal to -1, osteopenia is less than -1 to -2.4 and osteoporosis is less than or equal to -2.5. SL: 16 Vital Signs Vital Sign Value Date Comments Source Systolic (mm Hg) 105 07/07/2016 [facility] Diastolic (mm Hg) 64 07/07/2016 [facility] Temperature Oral (F) 97.5 F 07/07/2016 [facility] Respitory Rate 18 07/07/2016 [facility] Heart Rate 91 07/07/2016 [facility] Temperature Oral (F) 97.0 F 07/07/2016 [facility] Systolic (mm Hg) 126 07/07/2016 [facility] Diastolic (mm Hg) 70 07/07/2016 [facility] Respitory Rate 17 07/07/2016 [facility] Heart Rate 70 07/07/2016 [facility] Systolic (mm Hg) 106 07/07/2016 [facility] Diastolic (mm Hg) 62 07/07/2016 [facility] Respitory Rate 18 07/07/2016 [facility] Heart Rate 85 07/07/2016 [facility] Temperature Oral (F) 97.1 F 07/07/2016 [facility] BMI Calculated 26.82 07/03/2016 [facility] Weight 84.8 07/03/2016 [facility] Height 177.8 cm 07/03/2016 [facility] Weight 77.273 07/03/2016 [facility] BMI Calculated 24.44 07/03/2016 [facility] Height 177.8 cm 07/03/2016 [facility] Encounters Location Location Encounter Encounter Reason Attending ADM DC Status Source Details Type Number For Provider Date Date Visit [facility] Outpt Diag [id number] Margo 09/28 09/29 [facility] [place] /2014 [facility] OP Therapy [id number] Cesilia 04/29 05/[address] [facility] Patients [facility]-Bar /2015 [facility] OP Therapy [id number] Cesilia 05/29 06/[address] [facility] Patients [facility] /2015 [facility] Inpatient [id number] Josh 07/03 07/07 Patrick Mcdonnell /2016 [facility] Procedures Procedure Code Date Perfomer Comments Source Mastectomy [id number] [facility]
[2018-06-21] MEDS ORDERED: NA CHLORIDE 0.9% 500 ML ONE (10:56)
[2018-06-21 10:59] LABS: Absolute Lymphocytes (CBC) 1.7 K/uL (0.7-4.9); Absolute Monocytes 0.5 K/uL (0.1-1.3); Absolute Neutrophil 3.5 K/uL (1.8-8.0); Basophils % 0.8 % (0-1.3); Eosinophils % 1.9 % (0-4.4); Hematocrit 41.7 % (36.0-45.0); Lymphocytes % 29.2 % (15.3-44.8); MPV 8.6 fL (7.6-11.3); Monocytes % 8.5 % (3.3-12.3); RBC Red Blood Cell Count 4.45 M/uL (3.86-4.86)
--- NOTE | 2018-06-21 11:04 | RAD REPORT ---
EXAM DESCRIPTION: CT - Ct Stroke Brain Wo Cont - 06/21/2018 10:50 am CLINICAL HISTORY: Right-sided facial droop, acute CVA, dementia COMPARISON: June 2016 TECHNIQUE: Axial 5 millimeter thick images of the head were obtained without IV contrast. All CT scans are performed using dose optimization technique as appropriate and may include automated exposure control or mA/KV adjustment according to patient size. FINDINGS: No intracranial hemorrhage, mass, or cerebral edema. No acute cortical based infarction. N o cortical edema or sulcal effacement. The acute subdural changes seen on the prior study have resolv ed. Patient has very advanced atrophy and chronic ischemic change. Ventricles are in proportion to vo lume loss. Arterial calcifications are present. Longo matter-white matter differentiation is preserved . No globe or orbital content acute finding. Right-side mastoid air cells are clear. Partial opacification of the left mastoid air cells similar t o comparison. No acute paranasal sinus finding. Findings telephoned to the referring clinician 10:40 a.m. IMPRESSION: No hemorrhage or acute cortical based infarction identifiable. Patient has very advanced atrophy and chronic ischemic changes of the cerebral and cerebellar hemisph eres. Chronic ischemic changes can mask nonhemorrhagic acute infarction. MR brain followup can be obtained if there is ongoing concern for acute ischemia.
[2018-06-21 11:06] LABS: Protime INR 1.25
[2018-06-21 11:22] LABS: BUN Blood Urea Nitrogen 38 mg/dL (7-18); Bicarbonate 30 mmol/L (21-32); Glucose Level 93 mg/dL (74-106); Sodium Level 142 mmol/L (136-145); Troponin (Emerg Dept Use Only) < 0.02 ng/mL (0.0-0.045)
--- NOTE | 2018-06-21 11:43 | RAD REPORT ---
EXAM DESCRIPTION: RAD - Chest Single View - 06/21/2018 11:35 am CLINICAL HISTORY: weakness Chest pain. COMPARISON: Chest Single View dated 07/02/2016; Chest Single View dated 02/08/2016 FINDINGS: Portable technique limits examination quality. The lungs are emphysematous but grossly clear. The heart is moderately enlarged. No displaced fractur es.Surgical clips are seen along the left thoracic cage. IMPRESSION: No acute intrathoracic process suspected.
--- NOTE | 2018-06-21 12:25 | ER ---
Nurse's Notes [facility] Name: Nelsy Holbrook Age: 88 yrs Sex: Female : 1930 Arrival Date: 06/21/2018 Time: 10:24 Bed 2 Private MD: Diagnosis: Weakness;Transient cerebral ischemic attack, unspecified Presentation: 06/21 10:21 The patients blood glucose was checked before arriving to the hospital and was found to hj be normal. 10:24 Presenting complaint: EMS states: from [facility]; caregiver noticed pt hj leaning on the R side and R side facial droop when she ate breakfast, per staff, unknown last known normal; hx of dementia and Afib; BGL- 92; BP- 120/62; HR- 86;. Transition of care: patient was received from another setting of care ([facility]. An acute neurological deficit is present. Onset of symptoms was June 21, 2018. Risk Assessment: Do you want to hurt yourself or someone else? Patient reports no desire to harm self or others. Initial Sepsis Screen: Does the patient meet any 2 criteria? No. Patient's initial sepsis screen is negative. Does the patient have a suspected source of infection? No. Patient's initial sepsis screen is negative. Care prior to arrival: None. 10:24 Method Of Arrival: EMS: [facility] 10:24 Acuity: HAL 3 hj Triage Assessment: 10:29 The onset of the patients symptoms was at an unknown time. General: Appears in no hj apparent distress. uncomfortable, Behavior is appropriate for age, flat, uncooperative. Pain: Denies pain. 10:41 The onset of the patients symptoms was at an unknown time. Neuro: Reports weakness. hj 10:41 The onset of the patients symptoms was. Stroke Activation: Symptom onset > 6 hours Physician: Stroke Attending; Name: ; Notified At: ; Arrived At: Physician: Chief Stroke Resident; Name: ; Notified At: ; Arrived At: Physician: Stroke Resident; Name: ; Notified At: ; Arrived At: Physician: ED Attending; Name: ; Notified At: ; Arrived At: Physician: ED Resident; Name: ; Notified At: ; Arrived At: Historical: - Allergies: 10:29 No Known Allergies; hj - Home Meds: 10:29 Aricept 10 mg Oral tab 1 tab once daily [Active]; Jublia 10 % topical christie once daily hj [Active]; Lexapro 10 mg Oral tab 1 tab once daily [Active]; meloxicam 15 mg oral tab 1 tab once daily [Active]; Namenda 10 mg oral tab 1 tab 2 times per day [Active]; simvastatin 40 mg Oral tab 1 tab once daily [Active]; Vesicare 10 mg oral tab 1 tab once daily [Active]; acetaminophen 650 mg Oral TbER [Active]; minocycline 100 mg oral cap 1 cap 2 times per day [Active]; sulfamethoxazole-trimethoprim 800-160 mg Oral tab 1 tab every 12 hours [Active]; - PMHx: 10:29 Alzheimers; Atrial Fib; Hypothyroidism; hj - PSHx: 10:29 Unable to obtain; hj - Immunization history:: Adult Immunizations up to date. - Social history:: Smoking status: Patient/guardian denies using tobacco. - Ebola Screening: : Patient negative for fever greater than or equal to 101.5 degrees Fahrenheit, and additional compatible Ebola Virus Disease symptoms. - Family history:: not pertinent. - Hospitalizations: : No recent hospitalization is reported. Screenin:40 Abuse screen: Denies threats or abuse. Denies injuries from another. Nutritional hj screening: No deficits noted. Tuberculosis screening: No symptoms or risk factors identified. Fall Risk None identified. Assessment: 10:31 VAN Scoring: Arm Drift: Patients demonstrates NO arm weakness. Patient is VAN Negative. bp The patient has not been NPO before screening. The patient is not alert and/or unable to follow commands. The patient does not exhibit slurred or garbled speech. The patient is not exhibiting difficulty speaking. The patient is exhibiting difficulty understanding words. The patient is able to swallow own secretions with no drooling or need for suction. Patient tolerated one teaspoon of water. No drooling, immediate coughing, gurgling, or clearing of the throat was noted. The patient tolerated 90mL of water. No drooling, immediate coughing, gurgling, or clearing of the throat was noted. The patient failed the bedside swallow screening. The patient will be kept NPO until cleared by Speech Therapy or Physician. Provider notified of bedside swallow screening results: Shaun Baker MD. T-PA (Activase) Screening: Contraindications: Patient reports onset of signs and symptoms of stroke greater than 6 hours ago: Yes. 10:31 Reassessment: PT TO CT WITH RN. bp 10:31 General: Appears in no apparent distress. comfortable, Behavior is agitated, anxious, bp inappropriate for age, uncooperative. Pain: Unable to use pain scale. Does not appear to understand pain scale. Neuro: Level of Consciousness is confused, Oriented to none Manager Stars are equal bilaterally Moves all extremities. Facial symmetry appears normal, Pupils are PERRLA. Cardiovascular: Rhythm is sinus rhythm. Respiratory: Airway is patent Respiratory effort is even, unlabored, Respiratory pattern is regular, symmetrical. GI: No signs and/or symptoms were reported involving the gastrointestinal system. : No signs and/or symptoms were reported regarding the genitourinary system. EENT: No deficits noted. Derm: No deficits noted. Musculoskeletal: Circulation, motion, and sensation intact. Range of motion: intact in all extremities. 11:06 The patient has not been NPO before screening. The patient is alert, and able to follow hj commands. The patient does not exhibit slurred or garbled speech. The patient is not exhibiting difficulty speaking. The patient is exhibiting difficulty understanding words. The patient is able to swallow own secretions with no drooling or need for suction. Patient tolerated one teaspoon of water. No drooling, immediate coughing, gurgling, or clearing of the throat was noted. The patient tolerated 90mL of water. No drooling, immediate coughing, gurgling, or clearing of the throat was noted. The patient passed the bedside swallow screening. Oral medications may be given as ordered. Contact Physician for further diet orders. Provider notified of bedside swallow screening results: Jn Lo RN. 11:14 Reassessment: Patient and/or family updated on plan of care and expected duration. Pain hj level reassessed. family in room; pt provided with pillow and warm blanket;. 11:39 Reassessment: pt family asking for updates, provider informed;. hj 12:34 Reassessment: Patient and/or family updated on plan of care and expected duration. Pain hj level reassessed. pt for D/C; D/.C instructions given;. 13:38 Reassessment: PT D/C HOME VIA EMS. bp Vital Signs: 10:24 BP 122 / 58; Pulse 88; Resp 18; Temp 97.9(O); Pulse Ox 98% on R/A; Weight 79.38 kg; hj Height 5 ft. 4 in. (162.56 cm); 11:15 BP 132 / 71; Pulse 76; Resp 18; Pulse Ox 100% on R/A; hj 11:40 BP 115 / 64; Pulse 71; Resp 18; Pulse Ox 98% on R/A; hj 12:35 BP 113 / 64; Pulse 70; Resp 18; Pulse Ox 100% on R/A; hj 12:42 BP 115 / 73; Pulse 75; Resp 18; Pulse Ox 100% on R/A; hj 10:24 Body Mass Index 30.04 (79.38 kg, 162.56 cm) hj NIH Stroke Scale Scores: 10:31 NIHSS Score: 7 bp ED Course: 10:24 Patient arrived in ED. hj 10:26 Shaun Baker MD is Attending Physician. rn 10:28 Triage completed. hj 10:33 Maintain EMS IV. Dressing intact. Good blood return noted. Site clean \T\ dry. Gauge \T\ bp site: 20 GAUGE R AC. 10:40 Arm band placed on right wrist. hj 10:41 Patient has correct armband on for positive identification. Placed in gown. Bed in low hj position. Call light in reach. Side rails up X 1. Adult w/ patient. 10:42 Jn Lo, RN is Primary Nurse. hj 10:50 CT Stroke Brain w/o Contrast In Process Unspecified. EDMS 11:11 EKG done, by phlebotomy services technician. reviewed by Shaun Baker MD. at1 11:15 X-ray completed. Portable x-ray completed in exam room. Patient tolerated procedure jb2 well. 11:36 Stroke CXR 1 View In Process Unspecified. EDMS 12:35 No provider procedures requiring assistance completed. IV discontinued, intact, hj bleeding controlled, No redness/swelling at site. Pressure dressing applied. Administered Medications: 10:53 Drug: NS 0.9% 500 ml Route: IV; Rate: bolus; Site: right antecubital; hj 12:38 Follow up: IV Status: Completed infusion hj Point of Care Testing: Blood Glucose: 10:24 Blood Glucose: 96 mg/dL; hj Ranges: Outcome: 12:24 Discharge ordered by . rn 12:36 Discharged to home with family. hj 12:36 Condition: stable 12:36 Discharge instructions given to patient, family, Instructed on discharge instructions, follow up and referral plans. Demonstrated understanding of instructions, follow-up care. 13:39 Patient left the ED. bp NIH Stroke Scale - NIH Stroke Score Date: 06/21/2018 Time: 10:31 Total Score = 7 1a. Level of Consciousness (LOC) - 0(Alert) 1b. Level of Consciousness (LOC) (Year \T\ Age) - 2(Neither) 1c. LOC Commands (Open \T\ Closes Eyes/Hose Maker) - 2(Neither) 2. Best Gaze (Lateral Gaze Paresis) - 0(Normal) 3. Visual Field Loss - 0(No visual loss) 4. Facial Palsy - 0(Normal) 5a. Left Arm: Motor (10-second hold) - 0(No drift) 5b. Right Arm: Motor (10-second hold) - 0(No drift) 6a. Left Leg: Motor (5-second hold - always test supine) - 1(Drift) 6b. Right Leg: Motor (5-second hold - always test supine) - 1(Drift) 7. Limb Ataxia (finger/nose \T\ heel/manzano - test with eyes open) - 0(Absent) 8. Sensory Loss (pinprick arms/legs/face) - 0(Normal) 9. Best Language: Aphasia (description/naming/reading) - 1(Mild to moderate aphasia) 10. Dysarthria (speech clarity - read or repeat words) - 0(Normal) 11. Extinction and Inattention (visual/tactile/auditory/spatial/personal) - 0(No abnormality) Initials: bp Signatures: Dispatcher [employer] EDMS Evaristo Lamb2 Shaun Baker MD MD rn Gonzales, Amanda, zmt operator EKG Tat1 Jn Lo RN RN hj Peltier, Brian, RN RN bp Corrections: (The following items were deleted from the chart) 10:39 10:31 The patient has not been NPO before screening. The patient is not alert bp and/or unable to follow commands. The patient does not exhibit slurred or garbled speech. The patient is not exhibiting difficulty speaking. The patient is exhibiting difficulty understanding words. The patient is able to swallow own secretions with no drooling or need for suction. bp
--- NOTE | 2018-06-21 12:25 | EDPHYS ---
Physician Documentation [facility] Name: Nelsy Holbrook Age: 88 yrs Sex: Female : 1930 Arrival Date: 06/21/2018 Time: 10:24 Bed 2 Private MD: ED Physician Shaun Baker HPI: 06/21 10:27 This 88 yrs old Female presents to ER via Unassigned with complaints of S/S rn of Possible Stroke. 10:27 The patient's problem is reported as a facial droop, on right, weakness, in the right rn upper extremity, in the right lower extremity. Onset: The symptoms/episode began/occurred at an unknown time. Severity of symptoms: At their worst the symptoms were. It is unknown whether or not the patient has had similar symptoms in the past. Per report, assisted living facility noticed leaning to right today, unknown onset, noticed when new shift came in, patient with dementia and unable to tell us any information, EMS unable to obtain last known normal, no known trauma. Patient DNR.. Historical: - Allergies: 10:29 No Known Allergies; hj - Home Meds: 10:29 Aricept 10 mg Oral tab 1 tab once daily [Active]; Jublia 10 % topical christie once daily hj [Active]; Lexapro 10 mg Oral tab 1 tab once daily [Active]; meloxicam 15 mg oral tab 1 tab once daily [Active]; Namenda 10 mg oral tab 1 tab 2 times per day [Active]; simvastatin 40 mg Oral tab 1 tab once daily [Active]; Vesicare 10 mg oral tab 1 tab once daily [Active]; acetaminophen 650 mg Oral TbER [Active]; minocycline 100 mg oral cap 1 cap 2 times per day [Active]; sulfamethoxazole-trimethoprim 800-160 mg Oral tab 1 tab every 12 hours [Active]; - PMHx: 10:29 Alzheimers; Atrial Fib; Hypothyroidism; hj - PSHx: 10:29 Unable to obtain; hj - Immunization history:: Adult Immunizations up to date. - Social history:: Smoking status: Patient/guardian denies using tobacco. - Ebola Screening: : Patient negative for fever greater than or equal to 101.5 degrees Fahrenheit, and additional compatible Ebola Virus Disease symptoms. - Family history:: not pertinent. - Hospitalizations: : No recent hospitalization is reported. ROS: 10:27 Unable to obtain ROS due to baseline dementia. rn Exam: 10:27 Constitutional: This is a well developed, well nourished patient who is awake, alert, rn and in no acute distress. Appears agitated and moving all 4 ext Head/Face: Normocephalic, atraumatic. Eyes: Pupils equal round and reactive to light, extra-ocular motions intact. Lids and lashes normal. Conjunctiva and sclera are non-icteric and not injected. Cornea within normal limits. Periorbital areas with no swelling, redness, or edema. ENT: dry MM with frequent teeth grinding Cardiovascular: Irregular rhythm, normal rate, no murmur Respiratory: Lungs have equal breath sounds bilaterally, clear to auscultation Abdomen/GI: soft, non-tender Skin: Warm, dry MS/ Extremity: Pulses equal, no cyanosis. Neurovascular intact. Full, normal range of motion. Equal circumference. Neuro: Awake and alert, minimally cooperative, doesn't know location or time or what is going on. Brows and facial wrinkles equal, EOMI, no faical droop noted. Motor strength 5/5 in all extremities. Sensory grossly intact. Vital Signs: 10:24 BP 122 / 58; Pulse 88; Resp 18; Temp 97.9(O); Pulse Ox 98% on R/A; Weight 79.38 kg; hj Height 5 ft. 4 in. (162.56 cm); 11:15 BP 132 / 71; Pulse 76; Resp 18; Pulse Ox 100% on R/A; hj 11:40 BP 115 / 64; Pulse 71; Resp 18; Pulse Ox 98% on R/A; hj 12:35 BP 113 / 64; Pulse 70; Resp 18; Pulse Ox 100% on R/A; hj 12:42 BP 115 / 73; Pulse 75; Resp 18; Pulse Ox 100% on R/A; hj 10:24 Body Mass Index 30.04 (79.38 kg, 162.56 cm) NIH Stroke Scale Scores: 10:31 NIHSS Score: 7 bp MDM: 10:26 Patient medically screened. rn 12:21 Differential diagnosis: CVA, TIA, Dementia, metabolic disorder. Data reviewed: vital rn signs, nurses notes, lab test result(s), radiologic studies, CT scan, plain films, and as a result, I will admit patient. Counseling: I had a detailed discussion with the patient and/or guardian regarding: the historical points, exam findings, and any diagnostic results supporting the discharge/admit diagnosis, lab results, radiology results, the need for further work-up and treatment in the hospital. Response to treatment: the patient's condition has returned to base line, and as a result, I will. Refusal of service: The patient/guardian displays adequate decision making capability and despite a detailed discussion of alternatives, benefits, risks, and consequences refuses: Admission to the hospital for further work-up and treatment. ED course: Daughter here, no acute findings found on workup other than mild dehydration, facial droop and weakness resolved now, most likely TIA, recommended admission and daughter does not want her admitted. States she was deemed high risk fall and taken off her blood thinners, in aware of high risk of subsequent stroke, and return precautions given as well as risks of discharge. Daughter comfortable and does not want her admitted. . 06/21 10:27 Order name: Troponin (emerg Dept Use Only); Complete Time: 11:45 rn 06/21 10:27 Order name: Basic Metabolic Panel; Complete Time: : rn 06/21 10:27 Order name: CBC with Diff; Complete Time: : rn 06/21 10:27 Order name: Protime (+inr); Complete Time: 11: rn 06/21 10:27 Order name: Ptt, Activated; Complete Time: 11: rn 06/21 10:27 Order name: CT Stroke Brain w/o Contrast; Complete Time: 11:45 rn 06/21 10:27 Order name: Stroke CXR 1 View; Complete Time: 11: rn 06/21 10:27 Order name: EKG; Complete Time: 10: rn 06/21 10:27 Order name: Accucheck; Complete Time: 10:53 rn 06/21 10:27 Order name: Cardiac monitoring; Complete Time: 10: rn 06/21 10:27 Order name: EKG - Nurse/Tech; Complete Time: : rn 06/21 10:27 Order name: IV Saline Lock; Complete Time: 10: rn 06/21 10:27 Order name: Labs collected and sent; Complete Time: : rn 06/21 10:27 Order name: NPO; Complete Time: 10:43 rn 06/21 10:27 Order name: O2 Per Protocol; Complete Time: 10:43 rn 06/21 10:27 Order name: O2 Sat Monitoring; Complete Time: 10:43 rn 06/21 10:27 Order name: Stroke Swallow Screen; Complete Time: 11:06 rn Administered Medications: 10:53 Drug: NS 0.9% 500 ml Route: IV; Rate: bolus; Site: right antecubital; hj 12:38 Follow up: IV Status: Completed infusion hj Point of Care Testing: Blood Glucose: 10:24 Blood Glucose: 96 mg/dL; Ranges: Critical Glucose Levels:Adult <50 mg/dl or >400 mg/dl <40 mg/dl or >180 mg/dl Disposition: 06/21/18 12:24 Discharged to Home. Impression: Weakness, Transient cerebral ischemic attack, unspecified. - Condition is Stable. - Discharge Instructions: Stroke Prevention, Transient Ischemic Attack, Weakness, Dehydration, Adult, [id number]. - Medication Reconciliation Form, Thank You Letter, Antibiotic Education, Prescription Opioid Use, SBAR form form. - Follow up: Private Physician; When: As needed; Reason: Recheck today's complaints, Re-evaluation by your physician. - Problem is new. - Symptoms have improved. NIH Stroke Scale - NIH Stroke Score Date: 06/21/2018 Time: 10:31 Total Score = 7 1a. Level of Consciousness (LOC) - 0(Alert) 1b. Level of Consciousness (LOC) (Year \T\ Age) - 2(Neither) 1c. LOC Commands (Open \T\ Closes Eyes/Pony Worker) - 2(Neither) 2. Best Gaze (Lateral Gaze Paresis) - 0(Normal) 3. Visual Field Loss - 0(No visual loss) 4. Facial Palsy - 0(Normal) 5a. Left Arm: Motor (10-second hold) - 0(No drift) 5b. Right Arm: Motor (10-second hold) - 0(No drift) 6a. Left Leg: Motor (5-second hold - always test supine) - 1(Drift) 6b. Right Leg: Motor (5-second hold - always test supine) - 1(Drift) 7. Limb Ataxia (finger/nose \T\ heel/manzano - test with eyes open) - 0(Absent) 8. Sensory Loss (pinprick arms/legs/face) - 0(Normal) 9. Best Language: Aphasia (description/naming/reading) - 1(Mild to moderate aphasia) 10. Dysarthria (speech clarity - read or repeat words) - 0(Normal) 11. Extinction and Inattention (visual/tactile/auditory/spatial/personal) - 0(No abnormality) Initials: bp Signatures: Dispatcher [employer] EDShaun Cho MD MD rn Joaquin, Henry, RN RN hj Peltier, Brian, RN RN bp Corrections: (The following items were deleted from the chart) 12:38 10:27 Urine Dipstick-Ancillary ordered. anisa sena 13:39 12:24 06/21/2018 12:24 Discharged to Home. Impression: Weakness; Transient bp cerebral ischemic attack, unspecified. Condition is Stable. Forms are Medication Reconciliation Form, Thank You Letter, Antibiotic Education, Prescription Opioid Use. Follow up: Private Physician; When: As needed; Reason: Recheck today's complaints, Re-evaluation by your physician. Problem is new. Symptoms have improved. rn
--- NOTE | 2018-06-23 10:26 | EKG ---
Test Date: 2018-06-21 Test Time: 10:52:40 Wet End Tester: JAI MEASUREMENT RESULTS: Intervals: Rate: 73 NH: QRSD: 86 QT: 404 QTc: 445 [place]: P: NH: QRS: 85 T: 84 INTERPRETIVE STATEMENTS: Atrial fibrillation Anterior infarct, age undetermined Abnormal ECG Compared to ECG 07/02/2016 16:22:07 Myocardial infarct finding now present Left ventricular hypertrophy no longer present ST (T wave) deviation no longer present Electronically Signed On 06-21-18 12:37:05 CDT by Stef Ellis
== END 2018-06-21 13:39 | disposition home or self-care (01) ==
LOC: ER 10:23
DX: G45.9 Transient cerebral ischemic attack, unspecified (principal); I48.91 Unspecified atrial fibrillation; E03.9 Hypothyroidism, unspecified; G30.9 Alzheimer's disease, unspecified; F02.80 Dementia in other diseases classified elsewhere, unspecified severity, without behavioral disturbance, psychotic disturbance, mood disturbance, and anxiety
CPT/HCPCS: 36415; 70450; 71045; 80048; 82962; 84484; 85025; 85610; 85730; 93005; 96360; 96361; 99284